=== PATIENT | female | born 1990 | race American Indian/Alaskan Native ===

== ENCOUNTER 2020-06-07 08:28 | Emergency (ER) | payer MEDICAID ==
[2020-06-07 08:49] VITALS: BP 133/76
--- NOTE | 2020-06-07 13:21 | Emergency Department Report ---
Chief Complaint: Sore Throat Stated Complaint: SORE THROAT Time Seen by Provider: 06/07/20 13:18 - HPI History of Present Illness: Patient is a 29-year-old female presents emergency room with complaints of a sore throat that began 3 days ago. She states that she has an occasional mild dry cough. She denies any fever, nausea, vomiting, diarrhea, shortness of breath, chest pain, abdominal pain. She states that her children at home do have cold-like symptoms. No past medical history. No allergies to medications. Vitals are normal On exam: Non toxic appearing, no acute distress atraumatic, normocephalic normal appearance of the eyes, PERRL, EOMI, no periorbital edema or ecchymosis moist mucus membranes, normal oropharynx, normal TMs and canals, no cervical lymphadenopathy regular heart rate and rhythm, no gallops, no rubs, no murmurs breath sounds are clear bilaterally, no w/r/r, no stridor, no respiratory distress A&O x4, no focal neuro deficit skin is warm, dry, intact Patient's vitals are normal, she is afebrile, no tachycardia, no hypoxia Her breath sounds are clear bilaterally, she has a normal oropharynx, no signs of tonsillitis or pharyngitis She is presenting with viral-like symptoms and has had a sick contact with her children who have colds per mother advised pt May alternate Tylenol or ibuprofen as needed for discomfort. Monitor with warm salt water 3-5 times a day. May suck on throat lozenges or use [id number] throat spray. Increase your fluid intake. May take Mucinex or TheraFlu for your cold symptoms. Follow-up with your primary care doctor. Return to emergency room for any new or worsening symptoms. Please follow your work guidelines regarding COVID-19. Patient given the appropriate resources Discussed very strict return precautions with patient Medical screening examination performed and there is no threat to life or limb at this time - Exam Vital Signs: Vital Signs 06/07/20 08:45 Temperature 98.1 F Pulse Rate 74 Respiratory 18 Rate Blood Pressure 133/76 O2 Sat by Pulse 98 Oximetry MSE screening note: Focused history and physical exam performed. ED Disposition for MSE Clinical Impression: Viral illness Disposition: MED SCREENING EXAM-LEFT Is pt being admited?: No Does the pt Need Aspirin: No Condition: Stable Instructions: Viral Illness, Adult Additional Instructions: May alternate Tylenol or ibuprofen as needed for discomfort. Monitor with warm salt water 3-5 times a day. May suck on throat lozenges or use [id number] throat spray. Increase your fluid intake. May take Mucinex or TheraFlu for your cold symptoms. Follow-up with your primary care doctor. Return to emergency room for any new or worsening symptoms. Please follow your work guidelines regarding COVID-19. Referrals: PRIMARY MD STEFFANY [Primary Care Provider] - 2-3 Days PURVI FINNEY MD [Staff Physician] - 2-3 Days [facility] [Provider Group] - 2-3 Days [facility] [place] [Outside] - 2-3 Days Forms: Work/School Release Form(ED) Time of Disposition: 13:19 Print Language: HUNGARIAN
== END 2020-06-07 13:27 | disposition left against medical advice (07) ==
LOC: ED 08:28
DX: B34.9 Viral infection, unspecified (principal); Z53.21 Procedure and treatment not carried out due to patient leaving prior to being seen by health care provider